=== PATIENT | male | born 2000 | race Caucasian/White ===

== ENCOUNTER 2025-01-12 01:34 | Observation (INO) | payer BC, SELFPAY ==
[2025-01-11 20:09] VITALS: BMI 23.0
[2025-01-11 20:11] VITALS: BP 133/83
[2025-01-11 20:25] LABS: Glucose - Point of Care 95 mg/dl (70-99)
[2025-01-11 20:34] LABS: Urine Albumin 1+ (Neg - Trace); Urine Bilirubin Negative (Negative); Urine Character Clear (Clear); Urine Color Yellow; Urine Glucose Negative (Negative); Urine Ketone Negative (Negative); Urine Leukocyte Negative (Negative); Urine Nitrite Negative (Negative); Urine Occult Blood 2+ (Negative); Urine Specific Gravity 1.025 (<1.030); Urine Urobilinogen Negative (Neg - 1+)
[2025-01-11 20:39] LABS: % Basophils 0.3 % (0-2); % Eosinophils 1.2 % (0-6); % Immature Granulocytes 0.3 % (0-0.5); % Lymphocytes 18.1 % (20.5-51.1); % Monocytes 6.7 % (1.7-9.3); % Neutrophils 73.4 % (42.2-75.2); Absolute Eosinophils 0.1 10^3/uL (0-0.7); Absolute Lymphocytes 1.8 10^3/uL (1.2-3.4); Absolute Monocytes 0.7 10^3/uL (0.1-0.6); Absolute Neutrophils 7.4 10^3/uL (1.4-6.5); Hematocrit 40.8 % (39.0-52.0); Hemoglobin 14.4 g/dL (13.0-18.0); Mean Corp Hgb Conc. 35.3 g/dL (33.0-37.0); Mean Corpuscular Hgb 29.9 pg (27.0-31.0); Mean Corpuscular Volume 84.8 fL (80.0-94.0); Nucleated Red Blood Cells % 0 % (-); Platelet Count 243 10^3/uL (130-400); Red Blood Cell Count 4.81 10^6/uL (4.70-6.10); White Blood Cell Count 10.1 10^3/uL (4.8-10.8)
[2025-01-11 20:42] LABS: INR 1.07; PT 14.2 Sec (11.4-14.6)
[2025-01-11 20:43] LABS: APTT 26.8 Sec (23.4-35.0)
[2025-01-11 20:52] LABS: Urine Squamous Cell 0-2 /LPF (Few)
[2025-01-11 20:53] LABS: Urine Mucus Few
[2025-01-11 20:54] LABS: ALT (SGPT) 17 U/L (0-50); AST (SGOT) 22 U/L (17-59); Albumin 4.6 g/dl (3.5-5.0); Alkaline Phosphatase 94 U/L (38-126); Blood Urea Nitrogen 20 mg/dl (9-20); Calcium 10.3 mg/dl (8.4-10.2); Carbon Dioxide 25 mmol/L (22-30); Chloride 106 mmol/L (98-107); Estimated Creatinine Clearance > 125 ml/min; Glucose 101 mg/dl (70-99); Potassium 3.8 mmol/L (3.5-5.1); Sodium 141 mmol/L (135-145); Total Bilirubin 0.8 mg/dl (0.2-1.3); Total Protein 7.7 g/dl (6.3-8.2); eGFR > 60.00
[2025-01-11 20:55] LABS: Urine Red Blood Cell 0-2 /HPF (0-2)
[2025-01-11 20:59] LABS: Troponin I 0.063 ng/ml
[2025-01-11 21:53] VITALS: BP 127/74
[2025-01-11] MEDS: NSS 500 IV (21:58)
[2025-01-11 22:00] VITALS: BP 126/83
--- NOTE | 2025-01-11 22:18 | ED.CVA ---
History of Present Illness
General
Chief Complaint: CVA/TIA Symptoms
Source: patient
Exam Limitations: none
Time Seen by Provider: 01/11/25 21:42
Onset of Stroke Symptoms
Onset of symptoms known: Yes
Date of onset of symptoms: 01/11/25
Time of onset of symptoms: 18:00
History of Present Illness
History of Present Illness:
24-year-old male driving home from work and had 30 minutes of numbness to the left hand left arm and left leg. Jefferson lightheaded. Had a near syncopal episode last week. Has had a few of these episodes in the past. Currently asymptomatic. Denies
chest pain shortness of breath searing pain back pain or unusual headache.
Past History
Past History
ED Past Medical History: None
ED Past Surgical History: Other (Cyst on foot)
Review of Systems
Review of Systems
All Other Systems: Not applicable
Constitutional: Denies fever
Respiratory: Reports no symptoms
Cardiac: Reports no symptoms
Phy Exam
Physical Exam
Physical Exam:
GENERAL: Alert and oriented in no apparent distress
EYE: Orbits normal.
NECK: Supple, no significant adenopathy. No carotid bruit
ENT: Pharynx without erythema
CARDIAC: Regular rate and rhythm without any obvious murmurs.
LUNGS: Clear breath sounds,normal
ABDOMEN: Soft, without focal tenderness or distention
NEUROLOGICAL: Alert and oriented , cranial nerves II through XII intact. Speech normal. Wwzerb-te-nogg normal. No drift. Good lower extremity strength. Light touch intact.
SKIN: Warm and dry, no rash or lesion, no discoloration, skin intact.
MUSCULOSKELETAL: No edema,no deformity.Good color
PSYCH: Normal and appropriate interaction.
Course
Orders/Labs/Results
Orders:
Orders
01/11/25 20:14
Electrocardiogram (*1) Urgent
Reason for Study: Other
Other Reason for Exam: Possible Stroke
Head wo Contrast CT [CT Head W/o Iv Contrast] Urgent
Comment:
Reason For Exam: headache/left numbness/unsteady gait
Bedside Glucose- Treatment ONCE
EKG- Treatment ONCE
01/11/25 20:21
Complete Blood Count/With Diff Urgent
Comprehensive Metabolic Panel Urgent
PTT Urgent
Prothrombin Time Urgent
Troponin I Urgent
Urinalysis Reflex To Culture Urgent
Date Specimen was Collected: 01/11/25
Time Specimen was Collected: 20:14
Urine Drug Abuse Screen Urgent
Date Specimen was Collected: 01/11/25
Time Specimen was Collected: 20:14
Urine Microscopic Reflex Cult Urgent
01/11/25 21:53
EKG [Electrocardiogram (*1)] Urgent
Reason for Study: Chest Pain
CT Head & Neck Angio W/wo IV Urgent
Comment:
Reason For Exam: Transient left-sided paresthesias
EKG- Treatment ONCE
IV Insert/Care/Rem.- Treatment PRN
0.9% Sodium Chloride 500 ml [Nss] 500 ml IV BOLUS
01/11/25 21:54
Add On- LAB Urgent
Tests Added?: urine drug screen
01/11/25 21:57
Troponin I Urgent
01/12/25 01:14
Add On- LAB Urgent
Tests Added?: CPK
Admit/Transfer Patient As Directed
Co-Sign Provider:
Level of Care: Observation services
Assign to:: Telemetry
Physician / Group: Nickolas
Diagnosis: Near Syncope
Reason for Telemetry: Syncope
Date to Stop Telemetry: 01/14/25
Time to Stop Telemetry: 11:00
PRN Pain Medication Management As Directed
May give lesser potent ordered pain med per pt: Yes
preference::
Protocol:: Medication orders for pain may be administered in a
manner that supports deferring to patient preference
when the pt is:
- Requesting an ordered lesser potent pain medication.
Least to most potent pain medications are defined
as: acetaminophen < NSAID < tramadol < opioids
(morphine, oxycodone, hydromorphone).
- Requesting a lesser dose of the same medication IF
ORDERED.
- Requesting a less intrusive route of administration
if both routes are prescribed by the provider (PO <
IV).
01/12/25 01:15
Code Status As Directed
Resuscitation Status: Full Code
01/14/25 11:00
DC Protocol for Telemetry ONCE
Abnormal Lab Results
01/11/25 01/11/25
20:21 21:57
Absolute Neuts (auto) 7.4 H 10^3/uL
(1.4-6.5)
Absolute Monos (auto) 0.7 H 10^3/uL
(0.1-0.6)
Lymphocytes % 18.1 L %
(20.5-51.1)
Glucose 101 H mg/dl
(70-99)
Calcium 10.3 H mg/dl
(8.4-10.2)
Troponin I 0.063 H* ng/ml 0.068 H* ng/ml
Ur Occult Blood Reflex 2+ A
(Negative)
Urine Albumin (Reflex) 1+ A
(Neg - Trace)
01/11/25 20:21
01/11/25 20:21
Vital Signs
Initial and Last Documented VS:
Initial Vital Signs
Temp Pulse Resp BP Pulse Ox
98.4 F 85 16 133/83 98
01/11/25 20:11 01/11/25 20:11 01/11/25 20:11 01/11/25 20:11 01/11/25 20:11
Last Documented Vital Signs
Temp Pulse Resp BP Pulse Ox
98.4 F 68 16 124/68 99
01/11/25 20:11 01/11/25 23:30 01/11/25 23:30 01/11/25 23:00 01/11/25 23:30
MDM/Problems Addressed
Differential Diagnosis Includes:
Transient paresthesias with a indeterminate troponin. Would have to consider some sort of dissection. CT scan is pending. Repeat EKG and troponin. Neurologic exam normal at this time
*Radiology
Radiology exam reviewed: radiology read reviewed (CTA negative)
*Pulse Oximetry
Patient hypoxic: no
*EKG
Interpreted by ED Provider?: Yes
Interpretation: normal
Comparison EKG: no comparison EKG present
Heart Rate: 78
Rate: normal
Rhythm: sinus
Upper Jay: normal axis
Interval: normal interval
QRS Pattern: normal QRS
Ischemia: no ischemia
*Critical Care Note
Total Time (30-74mins, 75-104mins- exclusive of procedures): Not Applicable
Update Note
Update Note:
Transient left-sided per seizures with recent near syncope and indeterminant troponin. Unclear about putting all this together but warrants further inpatient management
ED Attending Note
-
Portions of this chart may have been created with voice recognition software.� Occasional wrong word or��sound alike� substitutions may have occurred due to the inherent limitations of voice recognition software.
Discharge Plan
Departure
Patient Disposition: Admit
Date of Disposition: 01/12/25
Time of Disposition: 00:31
Presentation/result/management discussed w/ accepting MD/DO: Hospitalist
Discharge Problem:
Transient left paresthesias, Indeterminate troponin
Interventions
Interventions:
*Risk Screen - Suicide Last Done: 01/11/25 20:11
*General Assessment Last Done: 01/11/25 21:37
*Neglect/Abuse Screening Last Done: 01/11/25 20:11
*ED- Fall Risk Assessment Last Done: 01/11/25 21:37
*ED COVID-19 Vaccine History Last Done: 01/11/25 21:37
ED- Pulmonary Assessment Last Done: 01/11/25 21:37
ED- Neurological Assessment Last Done: 01/11/25 21:37
ED- Cardiac Assessment Last Done: 01/11/25 21:39
ED Swallowing Screen Last Done: 01/11/25 21:37
[2025-01-11 22:28] LABS: Amphetamines Negative (Negative); Barbiturates Negative (Negative); Benzodiazepines Negative (Negative); Buprenorphine Negative (Negative); Cocaine Negative (Negative); Marijuana Negative (Negative); Methadone Negative (Negative); Methamphetamines Negative (Negative); Opiates Negative (Negative); Phencyclidine Negative (Negative); Tricyclic Antidepressants Negative (Negative)
[2025-01-11 22:36] LABS: Troponin I 0.068 ng/ml
[2025-01-11 23:00] VITALS: BP 124/68
[2025-01-12] VITALS (14 sets, daily range): BP systolic 106–136; BP diastolic 51–69; PULSE 61–70; BMI 23.3; BMI 23.1
--- NOTE | 2025-01-12 01:17 | HPS.HSE ---
Family Physician
-
Family Physician: Bri Valdez DO
Chief Complaint
-
Near-Syncope, Paresthesias.
History of Present Illness
Patient is a 24y M with PMH significant for anxiety / depression who presents to ED complaining of near syncopal episode this evening. Patient states that he has had about 3-4 similar episodes over the past month or so. He states that he was
driving this evening around 7 PM when he felt lightheaded and noted nausea and numbness / tingling in the L arm and leg. He pulled his care over and his symptoms resolved in about 5 minutes. Patient states that he also had a sharp, brief headache
- he cannot localize this.
Patient had a similar episode last week at work and 'almost passed out'. He did not lose conscious on either occasion however.
This evening he had a few additional / milder symptoms after his initial episode. His last symptoms were at 7:30 PM and he has felt normal since that time.
Medical History
Past Medical History
Past Medical History: Reports Other
Additional Past Medical History:
Anxiety / Depression
Past Surgical History: Reports Other
Additional Past Surgical History:
Foot Surgery
Hand Surgery
Social History
Tobacco: Non-smoker
Alcohol: Occasional
Drug: None
Family History
Family History: Other (Mother: Graves Disease)
Allergies / Home Medications
Allergies reflects when Allergies were last updated in [facility].
Home Medications with original date entered in [facility]
Allergy/Medication List:
Allergies
Allergy/AdvReac Type Severity Reaction Status Date / Time
No Known Allergies Allergy Verified 01/11/25 20:11
Home Medications
sertraline 50 mg tablet 50 mg PO DAILY 01/12/25
Review of Systems
-
History Source: Patient
A 12 point ROS was completed and negative except as noted: Yes
Constitutional: Reports Fatigue; Denies Fever or Chills
EENT: Denies Sore Throat
Respiratory: Denies Cough or Trouble Breathing
Cardiac: Reports Other (Lightheaded); Denies Chest Pain or Palpitations
Abdomen/GI: Reports Nausea; Denies Abdominal Pain, Vomiting or Diarrhea
: Denies Dysuria or Frequency
Musculoskeletal: Denies Joint Pain or Edema
Neurological: Reports Dizzy, Headache, Numbness and Other (Tingling / paresthesias); Denies Weakness
Physical Exam
Vital Signs
Vital Signs
Temp Pulse Resp BP Pulse Ox
98.4 F 68 16 124/68 99
01/11/25 20:11 01/11/25 23:30 01/11/25 23:30 01/11/25 23:00 01/11/25 23:30
Physical Exam
General: Other (24y M in no acute distress.)
HEENT: Moist mucous membranes and PERRLA
Respiratory: Clear; No Wheezes, Rales or Rhonchi
Cardiac: S1/S2 and Regular Rhythm; No Murmur
GI: Soft, Non Tender, Non Distended and Normal Bowel Sounds
Musculoskeletal: No Clubbing, No Cyanosis and No Edema
Neuro: AO x 3 and Nonfocal/grossly intact
Psych: Other (Poor eye contact.)
Laboratory Results
-
01/11/25 20:21
01/11/25 20:21
Laboratory Results
PT 14.2 Sec (11.4-14.6) 01/11/25 20:21
INR 1.07 01/11/25 20:21
APTT 26.8 Sec (23.4-35.0) 01/11/25 20:21
Total Bilirubin 0.8 mg/dl (0.2-1.3) 01/11/25 20:21
AST 22 U/L (17-59) 01/11/25 20:21
ALT 17 U/L (0-50) 01/11/25 20:21
Alkaline Phosphatase 94 U/L (38-126) 01/11/25 20:21
Troponin I 0.068 ng/ml H* 01/11/25 21:57
Impression/Plan
-
A/P: Patient is a 24y M with PMH significant for anxiety / depression who presents to ED complaining of L sided paresthesias, headache and lightheadedness.
Near Syncope
Paresthesias
Headache
- Observe overnight for further evaluation and treatment.
- Extensive evaluation in the ED has been mostly unremarkable thus far.
- CT head and CTA head and neck with no significant findings.
- Patient remains symptom-free at this time.
- Check MR brain for completeness.
- Consider Neuro eval if any noted abnormalities on MRI or any recurrent / focal symptoms.
Abnormal Troponin - Unknown Type
- Patient with abnormal but flat troponin elevation of 0.063 / 0.068 in the ED.
- No complaints of chest pain / dyspnea / etc.
- EKG without evident active ischemia.
- Presenting symptoms potentially c/w cardiogenic syncope (or 'near syncope', etc).
- Follow troponin to peak / 3 sets total.
- Cardiology evaluation for additional recommendations.
- Monitor on tele overnight.
Anxiety / Depression
- Continue sertraline.
DVT Prophylaxis: SCDs
Code Status: Full
[2025-01-12 02:09] LABS: Creatine Phosphokinase 270 U/L (55-170)
[2025-01-12] MEDS: LR 1000 IV ×2 (02:12→12:04)
[2025-01-12 04:50] LABS: Hematocrit 37.4 % (39.0-52.0); Mean Corp Hgb Conc. 34.8 g/dL (33.0-37.0); Mean Corpuscular Hgb 30.2 pg (27.0-31.0); Platelet Count 203 10^3/uL (130-400); Red Cell Dist. Width 12.1 % (11.5-14.5); White Blood Cell Count 6.4 10^3/uL (4.8-10.8)
[2025-01-12 05:19] LABS: Blood Urea Nitrogen 17 mg/dl (9-20); Calcium 9.3 mg/dl (8.4-10.2); Carbon Dioxide 26 mmol/L (22-30); Chloride 108 mmol/L (98-107); Estimated Creatinine Clearance 114 ml/min; Glucose 85 mg/dl (70-99); HDL Cholesterol 29 mg/dl; LDL Cholesterol, Calculated 102 mg/dl; Potassium 4.2 mmol/L (3.5-5.1); Sodium 141 mmol/L (135-145); Total Cholesterol 152 mg/dl (50-199); Triglyceride 109 mg/dl (10-149); Very Low Density Lipoprotein 21 mg/dl (0-30); eGFR > 60.00
[2025-01-12 05:32] LABS: Troponin I 0.078 ng/ml
[2025-01-12 05:50] LABS: TSH Reflex To Free T4 4.48 uIU/ml (0.47-4.68)
--- NOTE | 2025-01-12 06:48 | W.PN.HOSP.TC ---
Today's Communication/Plan
-
ECHO in AM
Assessment / Plan
Assessment / Plan
Physical Exam
General: No acute distress, comfortable
HEENT: Moist mucous membranes and PERRLA
Respiratory: Clear; No Wheezes, Rales or Rhonchi
Cardiac: S1/S2 and Regular Rhythm; No Murmur
GI: Soft, Non Tender, Non Distended and Normal Bowel Sounds
Musculoskeletal: No Clubbing, No Cyanosis and No Edema
Neuro: AO x 3 conversant coherent
Psych: Calm
A/P: Patient is a 24y M with PMH significant for anxiety / depression who presents to ED complaining of L sided paresthesias, headache and lightheadedness.
Near Syncope
Paresthesias
Headache
- Symptoms since resolved
- MRI CT head and CTA head/neck with no acute abn's
- Patient remains symptom-free at this time.
-IVF completed
Abnormal Troponin - Unclear significance
- Trended to peak 0.078 since trended down
- No complaints of chest pain / dyspnea
- EKG without evident active ischemia. S1Q3T3 noted but D-dimer neg
- Presenting symptoms potentially c/w cardiogenic syncope (or 'near syncope').
- Cardiology eval appreciated symptoms suspected vasovagal, ECHO Monday recommended
Anxiety / Depression
- Continue sertraline.
DVT Prophylaxis: SCDs
Code Status: Full
discussed with patient and patient's parents Ruperto and Silvina
I spent a total of 50 minutes with the patient or on the floor. More than 50% of this time involved counseling and coordination of care.
Anticipated Discharge: Within 24 hours
Subjective/Interval History
-
Date of Service: January 12, 2025
No acute distress. Reports feeling well. Symptoms resolved, including paraesthesia headache. Denies new acute issues at this time.
Objective Data
-
Labs:
Laboratory Results
01/11/25 01/12/25
20:21 04:27
WBC 10.1 6.4
Hgb 14.4 13.0
Hct 40.8 37.4 L
Plt Count 243 203
PT 14.2
INR 1.07
APTT 26.8
Sodium 141 141
Potassium 3.8 4.2
Chloride 106 108 H
Carbon Dioxide 25 26
BUN 20 17
Creatinine 1.0 1.1
Glucose 101 H 85
Calcium 10.3 H 9.3
Total Bilirubin 0.8
AST 22
ALT 17
Alkaline Phosphatase 94
Vital Signs:
Vital Signs
Temp Pulse Resp BP Pulse Ox
98.4 F 57 14 106/51 97
01/11/25 20:11 01/12/25 06:30 01/12/25 06:30 01/12/25 06:00 01/12/25 05:15
I&O
01/10/25 01/11/25 01/12/25
06:59 06:59 06:59
Intake Total 500 / 500
Balance 500 / 500
[2025-01-12] MEDS: ZOLOFT 50 MG PO (07:51)
[2025-01-12] MEDS: LOW STRENGTH ASPIRIN 81 MG PO (07:51)
--- NOTE | 2025-01-12 09:59 | CM ---
Patient seen at bedside in ED with both parents present. Patient states that he lives in a 2 story home. Patient stated that he has no DME or past needs for VN or SNF. Patient PCP Dr. Murali Valdez and he uses the [facility] in [place] for pharmacy needs.
Patient is OBS and CM reviewed form and provided to patient to review and sign. CM will continue to follow for discharge planning needs.
Plan; home with no needs anticipated; pending medical treatment palnn
[2025-01-12 10:18] LABS: D-Dimer < 0.27 ug/mlFEU (0.00-0.50)
[2025-01-12 10:29] LABS: Troponin I 0.071 ng/ml
--- NOTE | 2025-01-12 13:22 | CON.CAR ---
Consultation
Consultation Request
Date/Time Consultation Requested: 01/12/25 11 00
Date/Time Consultation Performed: 01/12/25 11 30
Requesting Provider: Justin
Performing Provider: Shasta
Reason for Consultation: Near syncope/indeterminate troponins
Medical History
-
Chief Complaint: Numbness left arm and leg
History of Present Illness:
Vasu has a history of anxiety/depression. He presents with a severe dizziness episode. He also had numbness in the left side which included his left arm and leg. Over the past 2 to 3 weeks he has had 2 or 3 episodes. He has severe dizziness
and felt like he might pass out. He notices heart beating fast and nausea. He denies any chest pain shortness of breath. It occurred yesterday while driving associated with left arm and leg numbness. He pulled over and improved. He then started
to drive again and recurred. He is admitted for workup of near syncope and cardiology is consulted for indeterminate troponins as well.
Past Medical History
Past Medical History: Other (See HPI)
Past Surgical History: None
Social History
Tobacco: Non-Smoker
Alcohol: Occasional
Drug: None
Personal: Single
Living: With Family
Employment: Employed (Works as an tax accountant)
Family History
Family History: Other (There is no family history of premature coronary artery disease)
Allergies / Home Medications
Allergy/AdvReac Type Severity Reaction Status Date / Time
No Known Allergies Allergy Verified 01/11/25 20:11
�Medication �Instructions �Recorded �Confirmed �Type
sertraline 50 mg tablet 50 mg PO DAILY Depression 01/12/25 01/12/25 History
Review of Systems
-
History Source: Patient
All other systems: Negative unless noted
Constitutional: No Symptoms
EENT: No Symptoms
Respiratory: No Symptoms
Cardiac: Palpitations
Abdomen/GI: Nausea
: No Symptoms
Musculoskeletal: No Symptoms
Skin: No Symptoms
Neurological: Numbness (Left arm and leg)
Endocrine: No Symptoms
Hematologic/Lymphatic: No Symptoms
Physical Exam
Vital Signs
Temp Pulse Resp BP Pulse Ox
98.4 F 57 14 106/51 97
01/11/25 20:11 01/12/25 06:30 01/12/25 06:30 01/12/25 06:00 01/12/25 05:15
General: Well developed, well nourished in NAD.
Neck: Supple, no JVD, HJR, carotids +2 B/L, no bruits bilaterally.
Heart: Non displaced PMI, RRR, no murmurs, No S3, S4, no rubs.
Lungs: Clear to auscultation bilaterally, no wheeze, rhonchi, rubs bilaterally,
normal expiratory phase.
Abdomen: Normal bowel sounds, soft, non-tender, non-distended.
Extremities: No clubbing, cyanosis or edema bilaterally.
Neuro: No dysmetria, muscle strength 4/5 throughout
Lab Results
01/12/25 04:27
01/12/25 04:27
Troponin I 0.071 ng/ml H* 01/12/25 09:56
Impression / Plan
-
Impression:
Near syncope
Indeterminate troponins
History of anxiety/depression
Plan:
Symptoms are consistent with vasovagal etiology.
Troponin elevation likely nonischemic myocardial injury
Agree with IV fluids
Check echo
Continue to track troponin
He is urged to hydrate is much as possible and avoid prolonged standing or changes in position. Might consider eventual stress testing but would be low yield given young age and lack of risk factors.
Discussed with patient and family at bedside in detail
Data Reviewed
-
EKG: Tracing Personally Visualized and interpreted
Radiology: Report Reviewed by me
Medical Tests (Nuc Med, Echo etc): Report Reviewed by me
Labs: Labs Reviewed by me
Old Records: Reviewed
--- NOTE | 2025-01-12 16:34 | PTCARENOTE ---
Received patient to 421 at 1600. Awake alert oriented , no numbness, no tingling. Oriented to unit. No distress at present .
[2025-01-13] VITALS: BP 98/53
[2025-01-13 03:15] VITALS: BP 105/55
[2025-01-13 07:34] VITALS: BP 120/62; BP 125/70; BP 125/72; PULSE 62; PULSE 65; PULSE 73
[2025-01-13] MEDS: ZOLOFT 50 MG PO (10:14)
[2025-01-13] MEDS: LOW STRENGTH ASPIRIN 81 MG PO (10:15)
[2025-01-13 10:45] VITALS: BP 116/61
--- NOTE | 2025-01-13 10:48 | W.PN.CARDCBS ---
Today's Communication / Plan
-
Stable cardiology status for discharge
Impression / Plan
-
Impression:
Near syncope
Non ischemic myocardial injury
History of anxiety/depression
Echocardiogram 01/13/2025: Normal ejection fraction
Plan:
Stable cardiology status for discharge
Indeterminate troponins of unclear significance and felt to be nonischemic myocardial injury
Echocardiogram is normal
Patient should hydrate is much as possible and avoid prolonged standing. He should lie down immediately with symptoms.
Discussed with primary service
Progress Note - Vulnerability Researcher
Subjective
Date of Service: January 13, 2025
No complaints
Objective
Labs:
01/12/25 04:27
01/12/25 04:27
Labs
Hgb 13.0 g/dL (13.0-18.0) 01/12/25 04:27
Hct 37.4 % (39.0-52.0) L 01/12/25 04:27
Plt Count 203 10^3/uL (130-400) 01/12/25 04:27
PT 14.2 Sec (11.4-14.6) 01/11/25 20:21
INR 1.07 01/11/25 20:21
APTT 26.8 Sec (23.4-35.0) 01/11/25 20:21
Sodium 141 mmol/L (135-145) 01/12/25 04:27
Potassium 4.2 mmol/L (3.5-5.1) 01/12/25 04:27
BUN 17 mg/dl (9-20) 01/12/25 04:27
Creatinine 1.1 mg/dL (0.7-1.3) 01/12/25 04:27
Glucose 85 mg/dl (70-99) 01/12/25 04:27
Troponins
01/11/25 01/11/25 01/12/25
20:21 21:57 04:27
Troponin I 0.063 H* 0.068 H* 0.078 H*
01/12/25
09:56
Troponin I 0.071 H*
Vital Signs and I&O:
Vital Signs
Temp Pulse Resp BP Pulse Ox
98.1 F 67 18 116/61 100
01/13/25 10:45 01/13/25 10:45 01/13/25 10:45 01/13/25 10:45 01/13/25 10:45
Vital Signs
Temp Pulse Resp BP Pulse Ox
98.1 F 67 18 116/61 100
01/13/25 10:45 01/13/25 10:45 01/13/25 10:45 01/13/25 10:45 01/13/25 10:45
Intake & Output
01/11/25 01/12/25 01/13/25 01/14/25
06:59 06:59 06:59 06:59
Intake Total 500 / 500 880 / 880
Balance 500 / 500 880 / 880
Physical Exam
Physical Exam
General: Well developed, well nourished in NAD.
--- NOTE | 2025-01-13 12:43 | W.PN.HOSP.TC ---
Addendum entered and electronically signed by Michelle Downey MD 01/13/25 12:53:
nonischemic myocardial injury
Original Note:
Today's Communication/Plan
-
dc home today
Assessment / Plan
Assessment / Plan
Assessment:
Near Syncope
Paresthesias
Headache
- Symptoms since resolved
- MRI CT head and CTA head/neck with no acute abn's
- Patient remains symptom-free at this time.
- IVF completed
- likely vagal in origin. Hydration recommended and slow positional changes.
Abnormal Troponin - Unclear significance
- Trended to peak 0.078 since trended down
- No complaints of chest pain / dyspnea
- EKG without evident active ischemia. S1Q3T3 noted but D-dimer neg
- Presenting symptoms potentially c/w cardiogenic syncope (or 'near syncope').
- Cardiology eval appreciated symptoms suspected vasovagal, ECHO normal.
Anxiety / Depression
- Continue sertraline.
DVT Prophylaxis: SCDs
Code Status: Full
More than 30 minutes spent in discharge including
Final examination of the patient
Summarizing hospital stay
Instructions for continuing care to all relevant caregivers
Preparation of discharge records, prescriptions, and referral forms
Total time spent (in minutes): 41
Anticipated Discharge: Today
Subjective/Interval History
-
Date of Service: January 13, 2025
denies any new complaints at present
Objective Data
-
Vital Signs:
Vital Signs
Temp Pulse Resp BP Pulse Ox
98.1 F 67 18 116/61 100
01/13/25 10:45 01/13/25 10:45 01/13/25 10:45 01/13/25 10:45 01/13/25 10:45
I&O
01/12/25 01/13/25 01/14/25
06:59 06:59 06:59
Intake Total 500 / 500 880 / 880
Balance 500 / 500 880 / 880
Physical Exam
-
General: No Apparent Distress
HEENT: Normocephalic and Atraumatic
Respiratory: Negative Wheezes
Cardiac: Regular Rhythm and S1/S2
GI: Soft
Genito-urinary: No Costovertebral Tender
Neuro: AO x 3
Psych: Calm
Data Reviewed
-
Total Time Spent with Patient (in minutes): 41
Labs: Labs Reviewed by me
--- NOTE | 2025-01-13 12:53 | W.DS.TRANS ---
DC Summary - Speech And Hearing Director
-
Discharge Instructions:
Discharge Diagnosis/Procedures vasovagal syncope
Diet Regular
Additional Diets adequate hydration daily
Activity As tolerated
Bathing Restrictions None
Instructions:
Stand-Alone Forms:
Changes to Home Medications: No
Discharge Medications:
DC Medications w/original date entered in [facility]
sertraline 50 mg tablet 50 mg PO DAILY Depression 01/12/25
Home Medication Changes
Pending Results: No
Total time spent discharging patient (in min): 41
--- NOTE | 2025-01-13 14:19 | CM ---
Pet Attending, patient is stable for discharge today
Plan: discharge to home; no needs; mother reported via phone that his father will transport home
== END 2025-01-13 13:43 | disposition home or self-care (01) ==
LOC: 4 WEST ACU 01:34
PROVIDERS: Emergency Medicine; Internal Medicine; ADMITTING PHYSICIAN Hospitalist; ATTENDING PHYSICIAN Internal Medicine; CONSULT PHYSICIAN Internal Medicine Cardiovascular Disease; EMERGENCY PHYSICIAN Emergency Medicine; FAMILY PHYSICIAN Internal Medicine
DX: R55 Syncope and collapse (principal); R20.0 Anesthesia of skin; R42 Dizziness and giddiness; Q28.3 Other malformations of cerebral vessels; R26.81 Unsteadiness on feet; R51.9 Headache, unspecified; R07.9 Chest pain, unspecified; R20.2 Paresthesia of skin; F41.9 Anxiety disorder, unspecified; R94.31 Abnormal electrocardiogram [ECG] [EKG]; F32.A Depression, unspecified; R79.89 Other specified abnormal findings of blood chemistry; R11.0 Nausea; I5A Non-ischemic myocardial injury (non-traumatic); M50.321 Other cervical disc degeneration at C4-C5 level; Z83.49 Family history of other endocrine, nutritional and metabolic diseases
CPT/HCPCS: 70450; 70496; 70498; 70551; 80048; 80053; 80061; 80306; 81003; 81015; 82550; 82962; 84443; 84484; 85025; 85027; 85379; 85610; 85730; 93005; 93306; 96360; 96361; 99285; G0378; Q9967